=== PATIENT | female | born 1975 | race Caucasian/White ===

== ENCOUNTER 2017-07-10 07:09 | Emergency (ER) | payer OTHER, MEDICARE ==
[~2017-07-10] VITALS: Ht 152.4 cm; Wt 62.6 kg
--- NOTE | 2017-07-10 07:49 | ED PSYCHIATRIC COMPLAINT ---
History of Present Illness General Chief Complaint: General Adult Stated Complaint: PIOTR MILLER, "I'M GOING THROUGH A MED CHANGE." -SI Source: patient Exam Limitations: no limitations Vital Signs & Intake/Output Vital Signs & Intake/Output Vital Signs Date Time Temp Pulse Resp B/P B/P Pulse O2 O2 Flow FiO2 Mean Ox Delivery Rate 07/10 1130 98.4 90 20 139/85 100 Room Air 07/10 0827 100 20 127/67 97 Room Air ED Intake and Output 07/11 0000 07/10 1200 Intake Total Output Total Balance Patient 138 lb Weight Allergies Coded Allergies: No Known Allergies (07/10/17) Reconcile Medications Escitalopram Oxalate (Lexapro) 20 MG TABLET 25 MG PO DAILY DEPRESSION ( Reported) Lamotrigine (Lamictal) 25 MG TABLET 75 MG PO DAIILY DEPRESSION (Reported) Lisinopril/Hydrochlorothiazide (Lisinopril-Hctz 20-12.5 MG Tab) 20 MG-12.5 MG TABLET 1 TAB PO DAILY BP (Reported) Venlafaxine HCl (Effexor XR) 37.5 MG CAP.ER.24H 1 CAP PO DAILY ANXIETY ( Reported) Triage Note: PT STATES THAT SHE WANTS TO BE EVALUATED BY PSYCH FOR MEDICATION WITHDRAW. PT STATES SHE WENT FROM 40MG TO 25MG OF LEXAPRO IN A WEEK. PT DENIES SI AND HI PT STATES SHE IS JUST VERY ANXIOUS Triage Nurses Notes Reviewed? yes : No Patient currently breastfeeds: No HPI: Patient presents for evaluation of anxiety. Patient states that she has been feeling anxious for about the last 3 months. She is currently going through medication change. The anal IOP. She states she is being weaned off Lexapro and being switched to Effexor. She took a dose of the Effexor and had trouble sleeping. She is concerned that she is now showing withdrawal effects from the Lexapro. Patient denies suicidal ideation. Symptoms are described as more or less constant but fluctuating in intensity but overall seem to be worsening. Past History Travel History Traveled to [place] past 21 day No Medical History Any Pertinent Medical History? see below for history Cardiovascular: hypertension Psychiatric: anxiety, depression Surgical History Surgical History: non-contributory Psychosocial History What is your primary language Brazilian Tobacco Use: Current Daily Use Daily Tobacco Use Amount/Type: => 5 Cigarettes daily Family History Hx Contributory? No Review of Systems Review of Systems Constitutional: Reports: no symptoms. EENTM: Reports: no symptoms. Respiratory: Reports: no symptoms. Cardiovascular: Reports: no symptoms. GI: Reports: no symptoms. Genitourinary: Reports: no symptoms. Musculoskeletal: Reports: no symptoms. Skin: Reports: no symptoms. Neurological/Psychological: Reports: see HPI. Hematologic/Endocrine: Reports: no symptoms. Immunologic/Allergic: Reports: no symptoms. All Other Systems: Reviewed and Negative Physical Exam Physical Exam General Appearance: see below Neurological/Psychiatric: see below Comments: General: Alert, calm, cooperative Head: Normocephalic, atraumatic Eyes: Normal inspection, no nystagmus, EOMI Ears: Normal inspection Nose: Normal inspection Throat: Moist mucosa Neck: Supple, no goiter Heart: Regular rate and rhythm, no murmurs rubs or gallops Lungs: Clear to auscultation bilaterally with good air entry Abdomen: Soft nontender nondistended, normal bowel sounds Chest: Nontender Extremities: Normal range of motion grossly, mild/moderate tremors present, no cyanosis clubbing or edema of the upper extremities Neurologic: cranial nerves II through XII grossly intact, speech clear, gait normal Psychiatric: No apparent delusions or hallucinations, no pressured speech or thought blocking SAD PERSONS Done? deferred to crisis Progress Differential Diagnosis: depression, anxiety, bipolar disorder, personality disorder Plan of Care: Orders Procedure Date/time Status URINE DRUG SCREEN FOR ER ONLY 07/11 751 Complete ED CRISIS PSYCH CONSULT 07/11 751 Active Laboratory Tests 07/10/17 0810: Urine Opiates Screen < 100, Methadone Screen 50, Barbiturate Screen < 60, Ur Phencyclidine Scrn < 6.00, Amphetamines Screen < 100, U Benzodiazepines Scrn < 85, Urine Cocaine Screen < 50, Urine Cannabis Screen < 5.00 Comments: Patient seen being evaluated by the psychiatrist. Patient then left the emergency department without notifying ED staff. Departure Departure Disposition: LEFT AGAINST MEDICAL ADVICE Condition: Stable Clinical Impression Primary Impression: Anxiety Referrals: Vel BROWN,Morena Mas (PCP/Family) Departure Forms: Customer Survey General Discharge Information
[2017-07-10] MEDS ORDERED: LAMICTAL25 M1 PO (08:28)
[2017-07-10] MEDS ORDERED: LEXAPRO20 M1 PO (08:29)
[2017-07-10] MEDS ORDERED: EFFEXOR XR37.5 M1 PO (08:29)
[2017-07-10] MEDS ORDERED: LISINOPRIL-HCT1 EACH PO (08:29)
[2017-07-10 11:30] VITALS: BP 139/85
--- NOTE | 2017-07-10 13:11 | ED PSYCHIATRIST/APRN CONSULT ---
Psychiatrist/OFFICE ADMINISTRATION ED Consult Assessment and Plan: Met with Ms. Dash, who has been anxious, ambivalent and difficulty with simple decision making, about her med changes. She was recently tapered from lexapro 40mg to 25mg and started on effexor 37.5mg last week. She took one dose at 9pm and didn't sleep and stated that she has not been doing well, with panic like sx since. She stated that she has been going to [facility] with palpitations and other complaints almost each day this week. I explained to her that some med changes can cause worsening anxiety, that effexor has different chemicals (Norepi) compared to lexapro, and may cause some worse anxiety at first. She was ambivalent about taking it, saying it made her feel nauseated and worse, but then concerned that her provider would be "mad" at her if she stopped it. I explained to her repeatedly that I would not be prescribing her a new antianxiety/depressant med based on our brief ER discussion, but would recommend a short term med such as buspar, benadryl or vistaril until her anxiety is stabilized. I assured her that if she stopped the effexor for a few days and worked with her provider there would be no issues with her trying to start it again. Despite all this, remained anxious, negating most things offered to her. She is visibly anxious but is redirectable and able to calm with reassurance and education. We discussed taking a dose of buspar and re-eval in a few hours, with likely plan discharge with a few day dose of buspar to return to her primary psychiatrist. She was offered earlier today voluntary admission or further observation but understood that we have no beds currently, I don't think she meets criteria for inpatient admission at this time, but she is labile and anxious, and though she has strong supports (in treatment and supportive family) she is not using them appropriately (going to ERs all week) at this time, so will re-eval later once she takes some buspar.
--- NOTE | 2017-07-10 14:57 | ED PSYCH CRISIS CONSULTATION ---
Crisis Consult Basic Assessment Date of Consult: 07/10/17 Responsible Person/Accompanied By: Patient drove herself for evaluation Insurance Authorization: Insurance #1: Insurance name: MEDICARE A Policy number: [id number] ED Provider: Patient's ED Provider: Heather BROWN,Parminder Booker Primary Care Physician: Patient's PCP: Morena Crowder MD, I. PCP's Current Psychiatrist: Dr. Shalini Blancas MD - [facility] Chief Complaint: General Adult Patient's Quote: "My anxiety has been bad" Present Illness: Patient is a 42 year old female who drove herself to [facility] emergency department due to concern about a recent medication change and increased anxiety with recurrent panic attacks. Patient reports she has been seeking evaluations everyday for the past week in emergency rooms, primarily [facility] / [facility]. Patient states she has experienced symptoms of feeling like Im crazy, shaking, feel like dying. Also, patient asserts she has had nausea possibly due to a medication side effect. Patient is currently a patient of [facility] intensive outpatient program (I[facility] She sees Dr. Shalini Blancas M.D. for medication management and attends group therapy three times a week. Patient reports Dr. Mendoza recently added a medication (Effexor 37.5 mg) and also is titrating down her Lexapro from 40mg? to 25 mg. Patient is also prescribed Lamictal 75 mg. Patient asserts she has been on longstanding psychotropic medication management with prescribed Lexapro for ~16 years and Lamictal for ~6 years. Patient indicates that she achieved stability with this regimen for several years without issues. Patient reports that she began experiencing anxiety for the past few weeks. Patients brother about 2 years ago and a nieces committed suicide in March. Patient reports her son had a flu illness in March and she was very concerned about this due to news reports about tragic outcomes from this seasons flu. Patient reports when she starting experiencing anxiety, she reported this to her home manager at the time ([facility] in [place], [place]) who referred her to [facility] IOP program. Patient indicates she has been with [facility] for an extended period of time prior to [facility] and that she will return once she is done with IOP. Apart from the above changes recently, patient denies any significant events. Patients symptoms are consistent with panic attacks. Patient reports only having knowledge of one breathing technique specific to managing panic attacks ( breathing in and out.) This aligner typewriter provided brief psychoeducation on breathing techniques such as pursed lip breathing and 4-7-8 breathing which have good effect for hyperventilation associated with panic attacks. Patient is a chronic smoker and reports smoking up to 1 pack of cigarettes per day. She denies any other substance use. A urine toxicology screening was performed and patient is negative for all substances. Patient does have a PRN prescription for Ativan but she denies using it as it makes her feel increased depression. Patient has also had trials of Xanax and Klonipin and anxiolytics in the past which she did not continue due to negative side effects (nausea.) Today, patient reports she did not take her Effexor this morning as prescribed because she felt weird when taking it and also suspected it made her feel nauseous. Patient asserts she is very concerned about this and wanted guidance. This aligner typewriter advised, on-call psychiatrist will be consulted Dr. Lacey met with patient *documented in patient chart. Patient has been taking her Lexapro medication and Lamictal as prescribed. Patient denies suicidal ideation, intent or plan currently or in the past. A Gallia suicide severity rating scale (C.-S.S.R.S.) was completed with no identified significant risk factors apart from recent activating events ( in family). Patient also is assessed for significant recent clinical status concern of anxiety. Patient has identified protective factors of i.) reason for living, ii.) responsibility to family iii.) fear of dying. Patient asserts she feels safe to return home but also inquired if she could be considered for an inpatient psychiatric admission at [facility]. This aligner typewriter advised the process to determine criteria for this and that it would be reviewed by on-call psychiatrist. Patient did not indicate any specific reason by she was considering an inpatient admission other than to change her medications. Patient reports historical diagnoses as anxiety disorder and depressive disorder. Patient receives social security disability benefits for her depression. Patient resides with her mother, boyfriend, and 3 children ages 26, 19, and 12. Patient is not employed due to disability. Patient has stable housing. Patient asserts she has support from her family although they are unsure about how to help her with recent anxiety. Patient was ambivalent about her treatment options. She does intend to return to her IOP program and will raise the medication issue with her provider there. Patient asserts her panic attacks result in her seeking ED evaluations because she legitimately feels she is in medical crisis. When asked if there were any previous acute findings, patient reports there was a remark about an abnormal EKG which resulted in the taper of the Lexapro. Today, patient was medically cleared by attending physician Dr. Romero. Patient's Address: [address] [place] [address] [place] [address] Who Do You Live With? Mother (also also boyfriend+3 children) Family/Informants Interviewed: cannot be obtained due to (Patient left ED) Allergies - Coded Allergies: No Known Allergies (07/10/17) Current Medications - Scheduled Medications Escitalopram Oxalate (Lexapro) 20 MG TABLET 25 MG PO DAILY DEPRESSION ( Reported) Entered as Reported by Emely Mullins on 07/10/17828 Lamotrigine (Lamictal) 25 MG TABLET 75 MG PO DAIILY DEPRESSION (Reported) Entered as Reported by Emely Mullins on 07/10/17 08 Lisinopril/Hydrochlorothiazide (Lisinopril-Hctz 20-12.5 MG Tab) 20 MG-12.5 MG TABLET 1 TAB PO DAILY BP (Reported) Entered as Reported by Emely Mullins on 07/10/17828 Venlafaxine HCl (Effexor XR) 37.5 MG CAP.ER.24H 1 CAP PO DAILY ANXIETY ( Reported) Entered as Reported by Emely Mullins on 07/10/17828 Laboratory Results: Laboratory Tests 07/10/17 0810: Urine Opiates Screen < 100, Methadone Screen 50, Barbiturate Screen < 60, Ur Phencyclidine Scrn < 6.00, Amphetamines Screen < 100, U Benzodiazepines Scrn < 85, Urine Cocaine Screen < 50, Urine Cannabis Screen < 5.00 Past History Past Medical History Cardiovascular: hypertension Psychiatric: anxiety, depression Psychosocial History Strengths/Capabilities: Patient has supportive family. Patient is enrolled in intensive outpatient program and committed to treatment. Physical Limitations (Interventions): None assessed Psychiatric Treatment History Psych Treatment Psychiatric Treatment Yes Inpatient Treatment No Outpatient Treatment Yes Location of Treatment [facility] Reason for Treatment Depressive disorder and anxiety disorder Dates of Treatment 2001 to present Response to Treatment Recently, patient has had increasing anxiety despite treatment Diagnosis by History: Depressive disorder Anxiety disorder Substance Use/Abuse History Drug Use/Abuse Substances Used/Abused No Substance Abuse Treatment Substance Abuse Treatment Past Substance Abuse [place] No Inpatient Treatment No Outpatient Treatment No Current Mental Status Mental Status Orientation: Person, Place, Situation Affect: Anxious Speech: WNL Neuro-vegetative: Sleep Disturbance Appearance Appearance- Dress/Hygiene: Patient dressed in personal clothes. Observed to be slightly fidgety / anxious. No remarkable visible features. Behaviors Thought Process: WNL Thought Content: WNL Memory: WNL Insight: Fair SI/HI Risk Assessment Past Suicidal Ideation/Attempts No (Patient denies) Current Suicidal Ideation/Att No (Patient denies) Past Homicidal Ideation/Att: No Current Homicidal Ideation/Attempts No Degree of Intent: None Risk Factors: high anxiety/distress Lethality Ratin (mild) PTSD Checklist PTSD Done? patient declined (No trauma history reported) ED Management Sitter: No (Arrived as medical evaluation) Restraints: No (Patient is calm&cooperative.) DSM5/PS Stressors/Medical Prob Diagnosis' (DSM 5, Stressors, Medical): F41.9 Unspecified anxiety disorder F32.9 Unspecified depressive disorder Rule - out for : F41.0 Panic disorder Current GAF: 40 Comments: On disability / SSI Departure Disposition Psych Medical Clearance Date: 07/10/17 Medically Cleared at: 1000 Time Started: 1000 Time Ended: 1100 Psychiatrist Consulted: Dr. Lory Lacey MD Date Disposition Established: 07/10/17 Time Disposition Established: 1230 Plan for Disposition - Modality: IOP Facility: [facility] Outpatient Psychiatry Follow-up Appt Date: 07/12/17 Rationale for Disposition: Crisis evaluation reviewed with Dr. Lacey who assessed patient herself. Patient was to be given one dose of Buspar to address anxiety, however she left the emergency department before this was administered. This aligner typewriter called patient to assess for safety as she left abruptly. Patient advised that she was actually at [facility] emergency department seeking an evaluation there. This aligner typewriter informed patient that [facility] could contact [facility] for collateral if needed. Referrals Vel BROWN,Morena Mas (PCP/Family)
== END 2017-07-10 14:08 | disposition left against medical advice (07) ==
LOC: ERH 07:09
DX: F41.9 Anxiety disorder, unspecified (principal)
CPT/HCPCS: 80307; G0463

== ENCOUNTER 2017-10-12 06:45 | Inpatient (IN) | payer OTHER, MEDICARE ==
[~2017-10-12] VITALS: Ht 154.9 cm; Wt 59.9 kg
[~2017-10-12 06:45] MED LIST: EFFEXOR XR37.5 M1 PO; LAMICTAL25 M1 PO; LEXAPRO20 M1 PO; LISINOPRIL-HCT1 EACH PO; LISINOPRIL20 M1 PO
--- NOTE | 2017-10-12 07:22 | ED GENERAL ADULT ---
History of Present Illness General Chief Complaint: Abdominal Pain/Flank Pain Stated Complaint: ABD PAIN Source: patient Exam Limitations: no limitations Vital Signs & Intake/Output Vital Signs & Intake/Output Vital Signs Date Time Temp Pulse Resp B/P B/P Pulse O2 O2 Flow FiO2 Mean Ox Delivery Rate 10/12 1600 97.7 67 18 159/107 97 Room Air 10/12 1400 98.8 72 16 148/99 97 Room Air 10/12 1200 98.6 71 16 159/103 98 Room Air 10/12 1024 98.2 69 20 140/80 99 Room Air 10/12 0701 98.4 82 18 164/94 98 Room Air Allergies Coded Allergies: No Known Allergies (07/10/17) Reconcile Medications Escitalopram Oxalate (Lexapro) 20 MG TABLET 20 MG PO DAILY DEPRESSION ( Reported) Lamotrigine (Lamictal) 25 MG TABLET 75 MG PO DAIILY DEPRESSION (Reported) Lisinopril 20 MG TABLET 1 TAB PO DAILY BP (Reported) Triage Note: 42 YO FEMALE TO TRIAGE FORE ANA LUISA OF ABD APNI WITH +NAUSEA X1 WEEK. ALSO REQUESTING TO SPEAK TO CRISIS REGARDING DEPRESSION. DENIES SI/HI. STATES HER OUTPATIENT PSYCH THIKS SHE NEEDS ADMISSION FOR HER DEPRESSION BECAUSE WHENEVER SHE STARTS A NEW MEDICATION FOR HER DEPRESSION "I RUN TO THE HOSPITAL THINKING SOMETHING IS WRONG" Triage Nurses Notes Reviewed? yes Onset: Abrupt Duration: hour(s): Timing: recent history : No Patient currently breastfeeds: No HPI: 10/12/17 7:32 AM 42-year-old female presents to the emergency department with epigastric abdominal pain. The patient states she's had epigastric abdominal pain radiating up into the chest for the past several weeks. She denies fever vomiting or other complaints. She says she has a history of depression and would also like to speak with the psychiatrist. She denies suicidal ideation. She says she does smoke; she does not drink. She feels anxious but denies shortness of breath per se, her PERC score is low risk (Parminder Jiménez DO) Past History Travel History Traveled to [place] past 21 day No Medical History Any Pertinent Medical History? see below for history Cardiovascular: hypertension Psychiatric: anxiety, depression Surgical History Surgical History: non-contributory Psychosocial History Who do you live with Mother What is your primary language French Tobacco Use: Current Daily Use Daily Tobacco Use Amount/Type: => 5 Cigarettes daily Family History Hx Contributory? No (Parminder Jiménez DO) Review of Systems Review of Systems Constitutional: Denies: fever. EENTM: Denies: visual changes. Respiratory: Denies: short of breath. Cardiovascular: Denies: chest pain. GI: Reports: abdominal pain, nausea. Genitourinary: Reports: no symptoms. Musculoskeletal: Reports: no symptoms. Skin: Denies: rash. Neurological/Psychological: Reports: depressed. Hematologic/Endocrine: Reports: no symptoms. Immunologic/Allergic: Reports: no symptoms. (Parminder Jiménez DO) Physical Exam Physical Exam General Appearance: well developed/nourished, alert, awake, anxious, mild distress Head: atraumatic, normal appearance Eyes: Bilateral: normal appearance, PERRL, EOMI. Ears, Nose, Throat: normal pharynx, normal ENT inspection, hearing grossly normal Neck: normal inspection, supple Respiratory: normal breath sounds, chest non-tender, no respiratory distress Cardiovascular: regular rate/rhythm Peripheral Pulses: 4+ radial (R), 4+ radial (L) Gastrointestinal: soft, non-tender Back: normal range of motion Extremities: normal inspection, normal range of motion, no edema Neurologic/Psych: no motor/sensory deficits, awake, alert, oriented x 3 Skin: intact, normal color, warm/dry Core Measures ACS in differential dx? No CVA/TIA Diagnosis: No Sepsis Present: No Sepsis Focused Exam Completed? No (Parminder Jiménez DO) Progress Differential Diagnoses I considered the following diagnoses in my evaluation of the patient: [Peptic ulcer disease, pancreatitis, gastritis,] Plan of Care: Orders Procedure Date/time Status VDRL 10/13 06 Active TSH REFLEX 10/13 0600 Active LIPID PANEL 10/13 0600 Active GLYCOSYLATED HGB 10/13 0600 Active Regular Diet 10/12 L Active Admit to inpatient psych 10/12 1724 Active Activity/Ambulation 10/12 1710 Active Admit to inpatient psych 10/12 1704 Active Vital Signs 10/12 1704 Active Add-on Test (ER Only) 10/12 0845 Active URINE DRUG SCREEN FOR ER ONLY 10/12 0740 Complete ED CRISIS PSYCH CONSULT 10/12 0739 Active ETHANOL 10/12 0734 Complete EKG 10/12 0731 Active TROPONIN LEVEL 10/12 07 Complete LIPASE 10/12 726 Complete HUMAN BETA HCG SCREEN 10/12 726 Complete COMPREHENSIVE METABOLIC PANEL 10/12 726 Complete CBC WITHOUT DIFFERENTIAL 10/12 726 Complete Current Medications Sig/Richard Start time Last Medication Dose Stop Time Status Admin Escitalopram Oxalate 20 MG DAILY 10/13 0900 UNVr (Lexapro) Lisinopril 20 MG DAILY 10/13 09 UNVr (Prinivil) Benztropine Mesylate 1 MG Q6P PRN 10/12 1714 UNVr (Cogentin 1 MG Tablet) Benztropine Mesylate 1 MG Q6P PRN 10/12 1714 UNVr (Cogentin) Haloperidol 5 MG Q6P PRN 10/12 1714 UNVr (Haldol) Haloperidol 5 MG Q6P PRN 10/12 1714 UNVr (Haldol) Lorazepam 2 MG Q6P PRN 10/12 1714 UNVr (Ativan) Lorazepam 2 MG Q6P PRN 10/12 1714 UNVr (Ativan) Nicotine 2 MG Q2H PRN 10/12 1714 UNVr (Nicotine) Sodium Chloride 1,000 ML ONCE ONE 10/12 744 AC (Normal Saline 0.9%) 10/13 2103 Laboratory Tests 10/12/17 0840: Urine Opiates Screen < 100, Methadone Screen 44, Barbiturate Screen < 60, Ur Phencyclidine Scrn < 6.00, Amphetamines Screen < 100, U Benzodiazepines Scrn < 85, Urine Cocaine Screen < 50, Urine Cannabis Screen < 5.00 10/12/17 0740: Serum Alcohol Cancelled 10/12/17 0734: Anion Gap 9, Estimated GFR > 60, BUN/Creatinine Ratio 26.0 H, Glucose 101 H, Calcium 8.8, Total Bilirubin 0.5, AST 13 L, ALT 31, Alkaline Phosphatase 45, Troponin I < 0.01, Total Protein 5.9 L, Albumin 3.7, Globulin 2.2, Albumin/ Globulin Ratio 1.7, Lipase 85, Total Beta HCG NEGATIVE, CBC w Diff NO MAN DIFF REQ, RBC 4.05 L, MCV 68.1 L, MCH 21.5 L, MCHC 31.5 L, RDW 18.6 H, MPV 9.5, Gran % 68.3, Lymphocytes % 23.5, Monocytes % 6.5, Eosinophils % 1.1, Basophils % 0.6, Absolute Granulocytes 2.5, Absolute Lymphocytes 0.9 L, Absolute Monocytes 0.2, Absolute Eosinophils 0, Absolute Basophils 0, Serum Alcohol < 10.0 Initial ED EKG: pending (Parminder Jiménez DO) Comments: Dr. Martin addendum at 1725 hrs.: I assumed care from Dr. Jiménez while awaiting crisis evaluation. Crisis team saw the patient and deemed her in need of hospitalization. She was admitted to the psychiatric service for definitive care. No acute events during my ED care. (Alexi Martin DO) Departure Departure Disposition: STILL A PATIENT Condition: Stable Clinical Impression Primary Impression: Abdominal pain Secondary Impressions: Depression Referrals: Vel BROWN,Morena Mas (PCP/Family) Departure Forms: Customer Survey General Discharge Information Comments 10/12/17 3 PM Labs unremarkable other than chronic anemia. The patient is pending evaluation and disposition by crisis. She was signed out to Dr. Martin at 3 PM. (Parminder Jiménez DO) Critical Care Note Critical Care Note Critical Care Time: non-applicable (Parminder Jiménez DO)
[2017-10-12 07:47] LABS: ABSOLUTE BASOPHIL COUNT 0 /CUMM (0.0-0.2); ABSOLUTE EOSINOPHIL COUNT 0 /CUMM (0.0-0.7); ABSOLUTE LYMPH COUNT 0.9 /CUMM (1.2-3.4); ABSOLUTE MONOCYTE COUNT 0.2 /CUMM (0.10-0.60); EOSINOPHIL % 1.1 % (0-5); MEAN PLATELET VOLUME 9.5 FL (7.4-10.4)
[2017-10-12 07:59] LABS: ABSOLUTE GRANULOCYTE CT 2.5 /CUMM (1.4-6.5); BASOPHIL % 0.6 % (0.0-2.0); GRANULOCYTE % 68.3 % (42.2-75.2); HEMATOCRIT 27.6 % (37-47); MEAN CORPUSCULAR HGB 21.5 PG (27.0-31.0); MEAN CORPUSCULAR HGB CONC 31.5 G/DL (33.0-37.0); MEAN CORPUSCULAR VOLUME 68.1 FL (81.0-99.0); PLATELET COUNT 334 /CUMM (130-400); RBC DISTRIBUTION WIDTH 18.6 % (11.5-14.5); RED BLOOD CELL CT 4.05 /CUMM (4.20-5.40); WHITE BLOOD CELL COUNT 3.7 /CUMM (4.8-10.8)
--- NOTE | 2017-10-12 10:16 | ED PSYCH CRISIS CONSULTATION ---
See Addendum Crisis Consult Basic Assessment Date of Consult: 10/12/17 Responsible Person/Accompanied By: self/bf Ed Insurance Authorization: Insurance #1: Insurance name: MEDICARE A Phone number: Policy number: [id number] Group number: Authorization number: ED Provider: Patient's ED Provider: Parminder Jiménez DO Primary Care Physician: Patient's PCP: Morena Crowder MD, I. PCP's Current Psychiatrist: Rosangela Sotelo APRN [facility] [phone] Chief Complaint: Psychiatric Related Complaint Patient's Quote: I'm having more panic attacks Present Illness: pt is a 42 yo female presenting to [place] ED this morning with complaint of depression and increasing panic attacks. Pt reports panic attacks have intensified past week [facility] no includes SI with thoughts to step in front of a car. Pt reports she isn't sure she would not step in front of a car when having one of her attacks. Pt had 1st Psychiatric admission last month - 30 day inpatient at [facility] with discharge to continued wkly medication management at [facility] and individual counseling 3x/wk with Daja Coles L[facility] in [place], [place]. Pt also received visiting nursing who administer her medications every morning. Pt was admitted for Illness Anxiety D/O and treated with CBT. Pt symptoms reportedly began about 5 months ago and has made frequent (multiple times per week) visits to EDs ([place], [place], [place]) for anxiety symptoms. Pt had been attending [place] IOP and almost nightly going to their ED prior to admission to [facility]. Pt reports treatment for mild depression and anxiety since her early 20s and has been prescribed Lexapro for 16 yrs. During pt inpatient at [facility] Lamictal was discontinued. Rosangela Sotelo APRN at [facility] is recommending trial of remeron but pt is too anxious to try new medication on an outpatient basis. Pt states she gets so anxious she will go to ED everyday. Rosangela reports seeing pt yesterday and she reported SI and thinks pt needs to be inpatient. Pt resides with her mother, bf and children ages 26, 19 and 12. Pt doesn't work and receives disability. Pt denies etoh and substance use. Pt smokes 1 pack cigarettes per day. Pt has no legal involvement. Pt reports grief related to unexpected of brother 2 yrs ago and recent suicide of her niece's . Pt also reports her oldest son had a health scare a few months ago but now is ok. Pt denies HI/AH/VH. Pt presents as anxious, tearful, OX3. Case reviewed with Dr Lynne. Pt is currently gravely disabled despite being active with an intensive treatment plan in place. and requires inpatient psychiatric treatment. Pt is in agreement with plan and will require a bed search. Patient's Address: [address] [place] [address] [place] [address] Other Phone Number: Who Do You Live With? Family Family/Informants Interviewed: collateral provided by Ed. He reports being with pt 3 yrs and that she has always been a little anxious but over the past few months can't function at home. He reports pt is horvath, irritable and requires him to drive her around before and after he works to help alleviate her anxiety. He feels current medication and treatment supports aren't working. Allergies - Coded Allergies: No Known Allergies (07/10/17) Current Medications - Scheduled Medications Escitalopram Oxalate (Lexapro) 20 MG TABLET 20 MG PO DAILY DEPRESSION ( Reported) Entered as Reported by Emely Mullins on 07/10/17 0829 Lamotrigine (Lamictal) 25 MG TABLET 75 MG PO DAIILY DEPRESSION (Reported) Entered as Reported by Emely Mullins on 07/10/17 0828 Lisinopril 20 MG TABLET 1 TAB PO DAILY BP (Reported) Entered as Reported by Alba Gutierrez on 08/08/17 1601 Laboratory Results: Laboratory Tests 10/12/17 0840: Urine Opiates Screen < 100, Methadone Screen 44, Barbiturate Screen < 60, Ur Phencyclidine Scrn < 6.00, Amphetamines Screen < 100, U Benzodiazepines Scrn < 85, Urine Cocaine Screen < 50, Urine Cannabis Screen < 5.00 10/12/17 0740: Serum Alcohol Cancelled 10/12/17 0734: Anion Gap 9, Estimated GFR > 60, BUN/Creatinine Ratio 26.0 H, Glucose 101 H, Calcium 8.8, Total Bilirubin 0.5, AST 13 L, ALT 31, Alkaline Phosphatase 45, Troponin I < 0.01, Total Protein 5.9 L, Albumin 3.7, Globulin 2.2, Albumin/ Globulin Ratio 1.7, Lipase 85, Total Beta HCG NEGATIVE, CBC w Diff NO MAN DIFF REQ, RBC 4.05 L, MCV 68.1 L, MCH 21.5 L, MCHC 31.5 L, RDW 18.6 H, MPV 9.5, Gran % 68.3, Lymphocytes % 23.5, Monocytes % 6.5, Eosinophils % 1.1, Basophils % 0.6, Absolute Granulocytes 2.5, Absolute Lymphocytes 0.9 L, Absolute Monocytes 0.2, Absolute Eosinophils 0, Absolute Basophils 0, Serum Alcohol < 10.0 (Cayetano Grijalva LCSW) Basic Assessment Insurance Authorization: Insurance #1: Insurance name: MEDICARE A [employer] Phone number: Policy number: [id number] Group number: Authorization number: DIMITRIS BLANCAS [id number] 1975 DIMITRIS BLANCAS [id number] Authorization # Client Authorization # Type of Request [id number] INITIAL Date of Admission/ Start of Services From - To Submission Date 10/12/2017 10/12/2017 - 10/14/2017 10/12/2017 (Deirdre Gillespie LCSW) Past History Past Medical History Cardiovascular: hypertension Psychiatric: anxiety, depression Past Surgical History Surgical History: non-contributory Psychosocial History Strengths/Capabilities: Patient has supportive family. Patient is committed to treatment. Physical Limitations (Interventions): None assessed Psychiatric Treatment History Psych Treatment Psychiatric Treatment Yes Inpatient Treatment Yes Outpatient Treatment Yes Location of Treatment [facility]; [facility]; [facility] Reason for Treatment depression anxiety/panic attacks Dates of Treatment Inpatient July/August 2017 Response to Treatment pt continues to decompensate despite intensive outpatient services Diagnosis by History: Depressive disorder Anxiety disorder Substance Use/Abuse History Drug Use/Abuse Substances Used/Abused No Substance Abuse Treatment Substance Abuse Treatment Past Substance Abuse [place] No Inpatient Treatment No Outpatient Treatment No Comments: pt denies etoh and substance use. Pt smokes 1 pack cigarrettes/day. (Cayetano Grijalva LCSW) Current Mental Status Mental Status Orientation: Person, Place, Situation Affect: Anxious, Labile, Sad Speech: WNL Neuro-vegetative: Appetite Decreased, Concentration Poor, Helpless, Sleep Disturbance Appearance Appearance- Dress/Hygiene: hospital scrubs; appropriately groomed; good eye contact Behaviors Thought Process: Irrational Thought Content: WNL Memory: WNL Insight: Fair SI/HI Risk Assessment Past Suicidal Ideation/Attempts Yes Current Suicidal Ideation/Att Yes (passive/no intent) Past Homicidal Ideation/Att: No Current Homicidal Ideation/Attempts No Degree of Intent: None, Thoughts/No Intent Danger To: Self Risk Factors: high anxiety/distress, SA/MH hospitalized Lethality Ratin PTSD Checklist PTSD Done? patient declined ED Management Sitter: Yes Restraints: No (Cayetano Grijalva LCSW) DSM5/PS Stressors/Medical Prob Diagnosis' (DSM 5, Stressors, Medical): Unspecified depression F32.9 Unspecified anxiety F41.9 recent loss medication changes Current GAF: 25 Comments: despite intensive outpatient treatment pt is gravely disabled and can't function in the home safely. (Cayetano Grijalva LCSW) Departure Disposition Psych Medical Clearance Date: 10/12/17 Medically Cleared at: 0930 Time Started: 0930 Time Ended: 1015 Psychiatrist Consulted: Park Lynne MD Date Disposition Established: 10/12/17 Time Disposition Established: 1130 Plan for Disposition - Modality: Inpatient Psychiatry Facility: [facility] Rationale for Disposition: mood stabilization and medication assessment Type of IP Admission: Voluntary Referrals Vel BROWN,Morena Mas (PCP/Family) (Cayetano Grijalva LCSW)
--- NOTE | 2017-10-12 19:39 | IP CRISIS DIAG ASSESS PSYCH ---
See Addendum Diagnostic Assessment Basic Assessment Insurance Authorization: Insurance #1: Insurance name: MEDICARE A [facility] Phone number: Policy number: [id number] Group number: Authorization number: Primary Care Physician: Patient's PCP: Morena Crowder MD, I. PCP's Patient's Quote: I'm having more panic attacks Present Illness: pt is a 42 yo female presenting to [place] ED this morning with complaint of depression and increasing panic attacks. Pt reports panic attacks have intensified past week [facility] no includes SI with thoughts to step in front of a car. Pt reports she isn't sure she would not step in front of a car when having one of her attacks. Pt had 1st Psychiatric admission last month - 30 day inpatient at [facility] with discharge to continued wkly medication management at [facility] and individual counseling 3x/wk with Daja Coles LPC in [place], [place]. Pt also received visiting nursing who administer her medications every morning. Pt was admitted for Illness Anxiety D/O and treated with CBT. Pt symptoms reportedly began about 5 months ago and has made frequent (multiple times per week) visits to EDs ([place], [place], [place]) for anxiety symptoms. Pt had been attending [place] IOP and almost nightly going to their ED prior to admission to [facility]. Pt reports treatment for mild depression and anxiety since her early 20s and has been prescribed Lexapro for 16 yrs. During pt inpatient at [facility] Lamictal was discontinued. Rosangela Sotelo APRN at [facility] is recommending trial of remeron but pt is too anxious to try new medication on an outpatient basis. Pt states she gets so anxious she will go to ED everyday. Rosangela reports seeing pt yesterday and she reported SI and thinks pt needs to be inpatient. Pt resides with her mother, bf and children ages 26, 19 and 12. Pt doesn't work and receives disability. Pt denies etoh and substance use. Pt smokes 1 pack cigarettes per day. Pt has no legal involvement. Pt reports grief related to unexpected of brother 2 yrs ago and recent suicide of her niece's . Pt also reports her oldest son had a health scare a few months ago but now is ok. Pt denies HI/AH/VH. Pt presents as anxious, tearful, OX3. Case reviewed with Dr Lynne. Pt is currently gravely disabled despite being active with an intensive treatment plan in place. and requires inpatient psychiatric treatment. Pt is in agreement with plan and will require a bed search. A bed in [facility] opened up, reviewed with Dr. Zuleta pt to be admitted. Patient's Address: Patient's Address: [place] [address] Other Phone Number: Who Do You Live With? Family Feel Safe Where You Live? Yes Feel Safe in Your Relationship Yes Marital Status: single Do You Have Children? Yes Ages? 26,19,12 Primary Language? Citizen [place] Language(s) Spoken At Home: Citizen [place] Family/Informants Interviewed: collateral provided by Ed. He reports being with pt 3 yrs and that she has always been a little anxious but over the past few months can't function at home. He reports pt is horvath, irritable and requires him to drive her around before and after he works to help alleviate her anxiety. He feels current medication and treatment supports aren't working. Allergies - Coded Allergies: No Known Allergies (07/10/17) Current Medications - Scheduled Medications Escitalopram Oxalate (Lexapro) 20 MG TABLET 20 MG PO DAILY DEPRESSION ( Reported) Entered as Reported by Emely Mullins on 07/10/17 0829 Lamotrigine (Lamictal) 25 MG TABLET 75 MG PO DAIILY DEPRESSION (Reported) Entered as Reported by Emely Mullins on 07/10/17 0828 Lisinopril 20 MG TABLET 1 TAB PO DAILY BP (Reported) Entered as Reported by Alba Gutierrez on 08/08/17 1601 Consequences of Psych Med Use: unknown Lab Results: Laboratory Tests 10/12/17 0840: Urine Opiates Screen < 100, Methadone Screen 44, Barbiturate Screen < 60, Ur Phencyclidine Scrn < 6.00, Amphetamines Screen < 100, U Benzodiazepines Scrn < 85, Urine Cocaine Screen < 50, Urine Cannabis Screen < 5.00 10/12/17 0740: Serum Alcohol Cancelled 10/12/17 0734: Anion Gap 9, Estimated GFR > 60, BUN/Creatinine Ratio 26.0 H, Glucose 101 H, Calcium 8.8, Total Bilirubin 0.5, AST 13 L, ALT 31, Alkaline Phosphatase 45, Troponin I < 0.01, Total Protein 5.9 L, Albumin 3.7, Globulin 2.2, Albumin/ Globulin Ratio 1.7, Lipase 85, Total Beta HCG NEGATIVE, CBC w Diff NO MAN DIFF REQ, RBC 4.05 L, MCV 68.1 L, MCH 21.5 L, MCHC 31.5 L, RDW 18.6 H, MPV 9.5, Gran % 68.3, Lymphocytes % 23.5, Monocytes % 6.5, Eosinophils % 1.1, Basophils % 0.6, Absolute Granulocytes 2.5, Absolute Lymphocytes 0.9 L, Absolute Monocytes 0.2, Absolute Eosinophils 0, Absolute Basophils 0, Serum Alcohol < 10.0 Toxicology Screen Completed? Yes Results: negative Symptoms of Use: n/a Past History Abuse/Trauma History Trauma History/Current Trauma: Denies Legal History Current Legal Status: none Psychosocial History Strengths/Capabilities: Patient has supportive family. Patient is committed to treatment. Physical Limitations (Interventions): None assessed Psychiatric Treatment History Psych Treatment Psychiatric Treatment Yes Inpatient Treatment Yes Outpatient Treatment Yes Location of Treatment [facility]; [facility]; [facility] Reason for Treatment depression anxiety/panic attacks Dates of Treatment Inpatient July/August 2017 Response to Treatment pt continues to decompensate despite intensive outpatient services Diagnosis by History: Depressive disorder Anxiety disorder Risk Factors: high anxiety/distress, SA/MH hospitalized Substance Use/Abuse History Drug Use/Abuse minimum 12mo Hx Substances Used/Abused No Substance Abuse Treatment Substance Abuse Treatment Past Substance Abuse [place] No Inpatient Treatment No Outpatient Treatment No Sexual History Sexually Active Yes # of partners 1 Sexual Orientation Heterosexual Use of Protection No Sexual Concerns: none Education History Preferred Learning Style: experiential Current Mental Status Mental Status Orientation: Person, Place, Situation Affect: Anxious, Labile, Sad Speech: WNL Neuro-vegetative: Appetite Decreased, Concentration Poor, Helpless, Sleep Disturbance Appearance Appearance- Dress/Hygiene: hospital scrubs; appropriately groomed; good eye contact Behaviors Thought Process: Irrational Thought Content: WNL Memory: WNL Insight: Fair SI/HI Risk Assessment - Minimum 6mo History- Past Suicidal Ideation/Attempts Yes Current Suicidal Ideation/Att Yes (passive/no intent) Past Homicidal Ideation/Att: No Current Homicidal Ideation/Attempts No Degree of Intent: None, Thoughts/No Intent Danger To: Self Risk Factors: high anxiety/distress, SA/MH hospitalized Lethality Ratin Needs/Init [place] Plan/Goals: saftey inpatient milieu med management individual, group family treatment AUDIT-C Questionnaire: AUDIT-C Questionnaire: Response Value ETOH use in the past year Never 0 # drinks typical/day Doesn't Drink 0 6 or > drinks per occasion Never 0 Total 0 DSM5/PS Stressors/Medical Prob Diagnosis' (DSM 5, Stressors, Medical): Unspecified depression F32.9 Unspecified anxiety F41.9 recent loss medication changes Current GAF: 25 Comments: despite intensive outpatient treatment pt is gravely disabled and can't function in the home safely.
[2017-10-12 21:57] VITALS: BP 142/98
[2017-10-13 07:38] VITALS: BP 142/91
[2017-10-13 12:23] VITALS: BP 138/81
--- NOTE | 2017-10-13 14:41 | SOCIAL WORKER PROG NOTE PSYCH ---
Social Work Progress Note Progress Note Dr. Palafox and I met with Chelo this morning. Chelo reports increased anxiety over this past year. She doesn't know if it could be triggered from her Brother 's passing a couple of years ago or seeing her son very ill this past winter in [facility]. She reports panic symptoms that happen on occasion, but struggling to deal with anxiety throughout the day. She stated she has been taking car rides at 4am to settle down. She reports a recent 30 day admission to [facility], but states she feels her depression is worsening because of the anxiety. She is not currently in IOP, but sees her therapist Daja Coles 3x 's a week. She currently lives with her Mother, her boyfriend, and 3 children (26,19,12). She has no previous suicide attempts. Reports family hx of depression and anxiety. Her Father's Brother committed suicide. She is not suicidal or homicidal currently. She reports no AH/VH. Has some guilt over her symptoms and how she is effecting her family. Feels hopeless at times. She has been "on the go" and trying to keep busy to distract from her anxiety. She stated she is fearful of her meds at times and afraid that her meds are going to kill her. Denies any issues with bad side effects from meds, doesn't know why she has these intrusive thoughts. She expressed periods of time that she has had "OCD" and described intrusive thoughts in the past. Some which may have been brought on by post depression. Dr. Palafox told her that she would best be treated in an IOP and he is not inclined to change much with her meds during this admission. Suggested refraining from coffee and taking 4am car rides. Suggested we have a family meeting and try to work on d/c soon. Called Chelo's Mother. We ended up scheduling a family meeting for Wednesday at 11am. She didn't think Chelo's boyfriend would be able to come due to work. She wanted to come in today, but I was not able to meet that request today.
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
--- NOTE | 2017-10-13 14:56 | History & Physical ---
General Information and HPI History of Present Illness: This young female is admitted to the hospital for increasing anxiety and depression. She reports that she has a long-standing history of depression and was treated by outpatient psychiatry department in [place]. Her medications were being cut down the psychiatrist gradually and presently she is feeling much worse and came to the hospital for increased anxiety and depression. From medical standpoint she reports that she has had heavy menstrual periods and had a checkup by the hazardous materials waste technician and told she had fibroids and she was found to be somewhat anemic by her outpatient physician. She also has a long-standing history of hypertension for about 12 years and is on lisinopril with generally keeps her blood pressure control. She has had appendectomy in the past and denies any other ongoing chronic problems. He She claims her parents are alive and her father has COPD but is fairly healthy except for hypertension in mother. He had one sibling a brother who from leukemia a few years ago. She herself has never been and has 3 children from different fathers and is on disability and is not employed. She smokes one pack of cigarettes a day but denies drinking any alcohol or any other illegal drugs Allergies/Medications Allergies: Coded Allergies: No Known Allergies (07/10/17) Home Med list Escitalopram Oxalate (Lexapro) 20 MG TABLET 20 MG PO DAILY DEPRESSION ( Reported) Lamotrigine (Lamictal) 25 MG TABLET 75 MG PO DAIILY DEPRESSION (Reported) Lisinopril 20 MG TABLET 1 TAB PO DAILY BP (Reported) Past History Travel History Traveled to [place] past 21 day No Medical History Neurological: NONE EENT: NONE Cardiovascular: hypertension Respiratory: NONE Gastrointestinal: NONE Hepatic: NONE Renal: NONE Musculoskeletal: NONE Psychiatric: anxiety, depression Endocrine: NONE Blood Disorders: NONE Cancer(s): NONE ROVING HAND/Reproductive: NONE History of MRSA: No History of VRE: No History of CDIFF: No Isolation History: Standard Surgical History Surgical History: non-contributory Past Family/Social History Psychosocial History Where do you live? Home Review of Systems Review of Systems Constitutional: Reports: no symptoms. EENTM: Denies: no symptoms. Cardiovascular: Denies: no symptoms. Respiratory: Denies: no symptoms. GI: Reports: bloating, distention. Genitourinary: Denies: no symptoms. Musculoskeletal: Denies: no symptoms. Skin: Denies: no symptoms. Neurological/Psychological: Reports: see HPI, anxiety, depressed, emotional problems. Hematologic/Endocrine: Denies: no symptoms (gets heavy menstrual periods). Exam & Diagnostic Data Last 24 Hrs of Vital Signs/I&O Vital Signs Date Time Temp Pulse Resp B/P B/P Pulse O2 O2 Flow FiO2 Mean Ox Delivery Rate 10/13 1223 61 138/81 10/13 0750 97.9 75 16 142/91 10/13 0738 97.9 75 142/91 10/12 2157 97.6 66 142/98 10/13 2015 98.1 74 16 154/99 99 Room Air 10/12 1801 98.0 72 18 155/82 98 Room Air 10/12 1600 97.7 67 18 159/107 97 Room Air Intake & Output 10/13 1600 10/13 0800 10/13 0000 Intake Total Output Total Balance Patient 132 lb Weight Physical Exam General Appearance Alert, Oriented X3, Cooperative, No Acute Distress Skin No Rashes, No Breakdown, No Significant Lesion HEENT Atraumatic, PERRLA, EOMI, Mucous Membr. moist/pink Neck Supple, No JVD, No thryomegaly, +2 Carotid Pulse wo Bruit Lymphatic Cervical nl Cardiovascular Regular Rate, Normal S1, Normal S2, No Murmurs, Gallops, Rubs Lungs Clear to Auscultation, Normal Air Movement Abdomen Normal Bowel Sounds, Soft, No Hepatospenomegaly, No Masses, minimal sensitivity epigastric area on palpation Neurological Exam Findings: Normal Gait, Normal Speech, Strength at 5/5 X4 Ext, Normal Tone, Cranial Nerves 3-12 NL, Reflexes 2+ Cranial Nerves II through XII: Within normal limits and intact Extremities No Clubbing, No Cyanosis, No Edema, No Tenderness/Swelling Assessment/Plan Assessment: This young female is admitted to the hospital for increasing anxiety and depression. From medical standpoint she has long-standing hypertension which seems to be fairly well controlled on lisinopril 20 mg a day and my own reading and the exam room is 140/85 and we will continue her 20 mg per day lisinopril for now although initially her blood pressure was high on admission but presently she is stable on this dose. She also has low hemoglobin and hematocrit with microcytosis and hypochromia most likely due to iron deficiency because she gives a history of heavy menstrual periods and fibroids and had recent intravaginal ultrasound done by her hazardous materials waste technician. We can check her serum iron and TIBC and ferritin to confirm that and start her empirically on Feosol once a day if she can tolerate that since she complains of stomach upset and she seemed to have some GERD-like symptoms which we will treat empirically with Mylanta or Maalox as needed. The rest of her labs and exam is unremarkable and her electrolytes and liver functions are normal. She'll be seen as needed. As Ranked By This Provider Problem List: 1. Anxiety 2. Hypertension 3. Depression 4. Abdominal pain Miscellaneous Miscellaneous Documentation Attending Case Discussed With: Claudy Palafox MD Primary Care Physician: Morena Crowder MD, I. Patient sees these Specialists None Level of Patient Care: DOUG Warren Attending MD Review Statement Attending Statement Attending MD Statement: examined this patient, reviewed EMR data (avail), discussed with nursing Attending Assessment/Plan: This young female is admitted for increasing anxiety and depression. Has hypertension as well as iron deficiency type anemia and some gastritis-like symptoms. We will continue her lisinopril and check iron studies and start her on Feosol. In addition she will be given mylanta on a when necessary basis. There is no other acute medical problem at this time.
--- NOTE | 2017-10-13 16:02 | IP INCIDENTAL NOTE PSYCH ---
Incidental Note Notation: left for Rosangela Philip APRN at [facility] [phone] to call me tomorrow after 10 a.m.
[2017-10-13 16:09] VITALS: BP 138/90
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
[2017-10-13 19:55] VITALS: BP 149/92
[2017-10-14 07:47] VITALS: BP 133/87
[2017-10-14] MEDS ORDERED: FERROUS SULFAT325 M3 PO (10:18)
--- NOTE | 2017-10-14 10:30 | Patient Discharge Instructions ---
See Addendum Psych Discharge Inst General Discharge Information Reason for Admission: Worsening panic/anxiety. Suicidal ideation. Psy Discharge Primary Diag+ Unspecified depression Psy Discharge Secondary Diag+ Unspecified anxiety R/o panic disorder Hx Lenin's Anemia Summary Tests/Major Procedures Lab ALT 31 U/L 10/12/17 0734 AST 13 U/L L 10/12/17 0734 BUN/Creatinine Ratio 26.0 % H 10/12/17 0734 Chloride 108 mmol/L H 10/12/17 0734 Cholesterol 129 MG/DL 10/13/17 0700 Cholesterol/HDL Ratio 3 % 10/13/17 0700 Ferritin Pending 10/14/17 0700 Glucose 101 mg/dL H 10/12/17 0734 HDL Cholesterol 43 mg/dL 10/13/17 0700 Iron Pending 10/14/17 0700 LDL Cholesterol, Calc 68 mg/dL 10/13/17 0700 TIBC Pending 10/14/17 0700 TSH &T3 &Free T4 Intrp 3.370 uIU/mL 10/13/17 0700 Total Beta HCG NEGATIVE 10/12/17 0734 Total Protein 5.9 g/dL L 10/12/17 0734 Triglycerides 91 mg/dL 10/13/17 0700 Absolute Lymphocytes 0.9 /CUMM L 10/12/17 0734 Hct 27.6 % L 10/12/17 0734 Hgb 8.7 G/DL L 10/12/17 0734 MCH 21.5 PG L 10/12/17 0734 MCHC 31.5 G/DL L 10/12/17 0734 MCV 68.1 FL L 10/12/17 0734 Plt Count 334 /CUMM 10/12/17 0734 RBC 4.05 /CUMM L 10/12/17 0734 RDW 18.6 % H 10/12/17 0734 WBC 3.7 /CUMM L 10/12/17 0734 RPR Titer/FTA NONREACTIVE 10/13/17 0700 Serum Alcohol < 10.0 MG/DL 10/12/17 0734 Studies Pending at [place]: Iron TIBC Ferretin Patient Instructions Contact Information Your Psychiatrist on [facility] was Claudy Palafox MD * If you are experiencing an emergency related to this hospitalization, please call [phone] to contact the treating psychiatrist or the psychiatrist-on- call. * To Request a copy of your medical records, please contact the Medical Records Department at [phone]. * To request results of studies pending at the time of discharge, please call [phone]. * Continue your Medications until directed to stop by your Healthcare provider. General Medication Information Please continue to take your new medications and your continued home medications , unless otherwise indicated on your discharge medication list, or unless directed by your MD or CORE DRILLING SUPERVISOR to stop them. Special Instructions Diet Regular Activity Normal Other Inst/Recommendations See PCP about anemia/hx Lenin's. Stop caffeine and 4 am car rides. - Tobacco Use Treatment Offered Post DC Medications Offered: Refused Tob Medication Tx Post DC Tobacco Treatment Plan: Refused Tobacco Tx Pgm - EtOH/Drug Use D/O Treatment Offered Post DC Medications Offered: NA-No EtOH/Drug Use D/O Post DC EtOH/SubAbuse TX Plan: NA-No EtOH/Drug Use D/O Metabolic Screening ([x]) Not Applicable, patient not on a neuroleptic. OR () Patient on a neuroleptic(s) . Enter below results for Hemoglobin A1C, and lipid panel if obtained during the last 365 days. BMI: 24.900 Blood Pressure: 133/87 Laboratory Results From [facility] E[facility] (If applicable): Advance Directives Does the Patient have Medical Advance Directives No/Refused further info Does Pt have Psychiatric Advance Directives? No/Refused further info Does Patient have a Designated Surrogate Decision Maker: Yes Information About Psychiatric Advance Directives Provided? Refused Discharge Plan Post Hospital Treatment Plan: Returning to home and family. Resume visiting nurse. IOP intake today at 1:15 pm.
--- NOTE | 2017-10-14 11:00 | SOCIAL WORKER PROG NOTE PSYCH ---
Social Work Progress Note Progress Note Dr. Palafox and I met with Chelo together this morning. She reported that she slept well, but woke up tearful and anxious. She reports this is how she usually wakes up. Reports anxiety at a 5 (scale 0-10, 10 being severe) and depression a 4 on the same scale. Denies any thoughts to harm herself or anyone else. Dr. Palafox explained that her symptoms would best be managed in an [facility] level of care as there is no safety concern and they can manage medication changes there if needed. She was in agreement to go to [facility]. I told her we will d/c her today with an intake if possible so she can start right away. She was fine with that plan. She couldn't remember the name of her VNS and said her prescriber at [facility] would know. I told her we will follow up with her providers and get a d/c plan in place. She plans to find a friend to pick her up today. Called [facility] and scheduled an intake for 1:15pm. Dr. Palafox spoke with Rosangela Amato ( prescriber at [facility]). She was informed of the d/c plan. She gave V[facility] information ([facility]) her visiting nurse is Maya [phone]. Called Maya and informed her of the plan. She will resume care with Chelo tomorrow morning. Chelo was advised to follow up with her PCP Dr. Zuluaga ([place]?) in [place], due to her Anemia. She said she is aware of this condition and prefers to make the appt. herself. Chelo got her boyfriend to pick her up today at d/c.
[2017-10-14 12:32] VITALS: BP 134/73
--- NOTE | 2017-10-14 14:08 | SOCIAL WORKER PROG NOTE PSYCH ---
Social Work Progress Note Faxed Referral(s) 1 Referred To: IOP Transition of Care Documents sent: Health Summary, W10 Faxed to: IOP Fax #: [phone] Faxed by: Esme Silva Date faxed: 10/14/17 Time Faxed: [phone] Faxed Referral(s) 2 Referred To: [facility] Transition of Care Documents sent: Health Summary, W10 [facility] Fax #: [phone] Faxed by: Esme Silva Date faxed: 10/14/17 Time Faxed: [phone]
--- NOTE | 2017-10-14 17:11 | CP SOUTH PROGRESS NOTE PSYCH ---
Psych (Inpt) Progress Note Progress Note Include the following elements, when applicable: Involvement in the active treatment of the patient with behavioral observations of the patient and the patient's response to the treatment. Review of the ongoing treatment process in the context of the treatment plan. Indication of how multi-disciplinary staff members are carrying out the treatment plan. Plans for future interventions and recommendations for revision of the treatment plan. Liaison with other physicians/providers. Progress Note: Case and treatment plan discussed in team meeting. Staff reports that the patient is denying suicidal ideation. Expressed anger that her medications have not been changed. Patient seen at 10:09 AM with social media marketerEsme. Patient states she feels okay , a little anxious. Reports she wakes up every morning crying and anxious. She is disappointed there have been no medication changes here. Patient is not concerned about her safety. Speech is loud. Behavior is calm and in control. Rates anxiety probably 5/10 and sad mood maybe 4/10. Denies feeling hopeless, helpless or worthless. Does feel guilty. Denies suicidal and homicidal ideation. Denies auditory and visual hallucinations and paranoid ideation. Reports she slept well. Reports appetite and energy are normal. Tolerating medications well, without complaint. She is not sure she is ready for discharge. Does feel safe for discharge. Patient was advised to avoid caffeine. She was advised to stop taking 4 AM car rides. She was advised to work on coping skills so she can avoid daily emergency room visits. Case discussed with outpatient prescriber, Rosangela Sotelo APRN. IMPRESSION: Condition improved. Okay for discharge today to IOP intake at 1:15 PM then to return home. Because of scheduling, we were unable to hold a family meeting with patient's mother. IOP provider should consider medication changes, such as addition of Remeron.
--- NOTE | 2017-10-14 17:12 | DISCHARGE SUMMARY REPORT-PSYCH ---
Visit Information Visit Dates/Diagnosis' Admission Date: 10/12/17 Discharge Date: 10/14/17 Reason for Admission: Worsening panic/anxiety. Suicidal ideation. Psy Discharge Primary Diag: Unspecified depression Psy Discharge Secondary Diag: Unspecified anxiety R/o panic disorder Hx Lenin's Anemia Hypertension Hx D.U.B. Hospital Course Significant Lab Findings: Lab ALT 31 U/L 10/12/17 0734 AST 13 U/L L 10/12/17 0734 BUN/Creatinine Ratio 26.0 % H 10/12/17 0734 Chloride 108 mmol/L H 10/12/17 0734 Cholesterol 129 MG/DL 10/13/17 0700 Cholesterol/HDL Ratio 3 % 10/13/17 0700 Ferritin Pending 10/14/17 0700 Glucose 101 mg/dL H 10/12/17 0734 HDL Cholesterol 43 mg/dL 10/13/17 0700 Iron Pending 10/14/17 0700 LDL Cholesterol, Calc 68 mg/dL 10/13/17 0700 TIBC Pending 10/14/17 0700 TSH &T3 &Free T4 Intrp 3.370 uIU/mL 10/13/17 0700 Total Beta HCG NEGATIVE 10/12/17 0734 Total Protein 5.9 g/dL L 10/12/17 0734 Triglycerides 91 mg/dL 10/13/17 0700 Absolute Lymphocytes 0.9 /CUMM L 10/12/17 0734 Hct 27.6 % L 10/12/17 0734 Hgb 8.7 G/DL L 10/12/17 0734 MCH 21.5 PG L 10/12/17 0734 MCHC 31.5 G/DL L 10/12/17 0734 MCV 68.1 FL L 10/12/17 0734 Plt Count 334 /CUMM 10/12/17 0734 RBC 4.05 /CUMM L 10/12/17 0734 RDW 18.6 % H 10/12/17 0734 WBC 3.7 /CUMM L 10/12/17 0734 RPR Titer/FTA NONREACTIVE 10/13/17 0700 Serum Alcohol < 10.0 MG/DL 10/12/17 0734 EKG 10/12/17 showed sinus rhythm @ 68, consider left ventricular hypertrophy, no significant change since previous tracing, abnormal EKG, QT 420, QTc 447. Course Complications: None. Consultations: The patient was seen by Dr. Hernandez for admission H&P. Per his note of 10/13/17: "Assessment: This young female is admitted to the hospital for increasing anxiety and depression. From medical standpoint she has long-standing hypertension which seems to be fairly well controlled on lisinopril 20 mg a day and my own reading and the exam room is 140/85 and we will continue her 20 mg per day lisinopril for now although initially her blood pressure was high on admission but presently she is stable on this dose. She also has low hemoglobin and hematocrit with microcytosis and hypochromia most likely due to iron deficiency because she gives a history of heavy menstrual periods and fibroids and had recent intravaginal ultrasound done by her supervisor paper machine. We can check her serum iron and TIBC and ferritin to confirm that and start her empirically on Feosol once a day if she can tolerate that since she complains of stomach upset and she seemed to have some GERD-like symptoms which we will treat empirically with Mylanta or Maalox as needed. The rest of her labs and exam is unremarkable and her electrolytes and liver functions are normal. She'll be seen as needed." Allergies: Coded Allergies: No Known Allergies (07/10/17) Hospital Course/TX Response: The patient was monitored on the unit for safety, anxiety and mood disorder. She participated in multimodal treatments on the unit. Home medications were continued without change. Decision was made for rapid discharge to [facility] where medication changes can be made over time. Progress note from date of discharge, 10/14/17: "Case and treatment plan discussed in team meeting. Staff reports that the patient is denying suicidal ideation. Expressed anger that her medications have not been changed. Patient seen at 10:09 AM with case management social workerEsme. Patient states she feels okay , a little anxious. Reports she wakes up every morning crying and anxious. She is disappointed there have been no medication changes here. Patient is not concerned about her safety. Speech is loud. Behavior is calm and in control. Rates anxiety probably 5/10 and sad mood maybe 4/10. Denies feeling hopeless, helpless or worthless. Does feel guilty. Denies suicidal and homicidal ideation. Denies auditory and visual hallucinations and paranoid ideation. Reports she slept well. Reports appetite and energy are normal. Tolerating medications well, without complaint. She is not sure she is ready for discharge. Does feel safe for discharge. Patient was advised to avoid caffeine. She was advised to stop taking 4 AM car rides. She was advised to work on coping skills so she can avoid daily emergency room visits. Case discussed with outpatient prescriber, Rosangela Sotelo APRN. IMPRESSION: Condition improved. Okay for discharge today to IOP intake at 1:15 PM then to return home. Because of scheduling, we were unable to hold a family meeting with patient's mother. IOP provider should consider medication changes, such as addition of Remeron." Discharge HBIPS - Tobacco Use Treatment Offered Post DC Medications Offered: Refused Tob Medication Tx Post DC Tobacco Treatment Plan: Refused Tobacco Tx Pgm - EtOH/Drug Use D/O Treatment Offered Post DC Medications Offered: NA-No EtOH/Drug Use D/O Post DC EtOH/SubAbuse TX Plan: NA-No EtOH/Drug Use D/O Metabolic Screening - Screen if on a Neuroleptic Medication - Metabolic screening should include: - Blood Pressure, BMI, Glucose or Hgb A1c, & a - Lipid profile from within the past 365 days. Metabolic Screening ([x]) Not Applicable, patient not on a neuroleptic. OR () Patient on a neuroleptic(s) . Enter below results for Hemoglobin A1C, and lipid panel if obtained during the last 365 days. BMI: 24.900 Blood Pressure: 134/73 Laboratory Results From [facility] EHR (If applicable): Discharge Instructions General Discharge Information Multiple Neuroleptics: ([x]) Not Applicable OR Document below three failed attempts at monotherapy, or a plan to taper to monotherapy, or augmentation of Clozapine. () Discharge Diet Regular Discharge Activity Normal DC Disposition: Returning to home and family. Referrals Ordered Referrals INTENSIVE OUTPT PSYCHIATRY 10/14/17 [address] [id number] [facility] Intensive Outpatient Services Intake 10/14/17 1:15pm [address] [id number] Provider Referral 10/15/17 For Groups: [[facility]] [facility] for daily med administration Resume services 10/15/17 am [phone] Provider Referral 10/20/17 For Groups: Outpatient Psychiatry [facility] Smoking Cessation Group 10/20/17 4pm [address], [place] Prescriptions Stop taking the following medications: Lamotrigine (Lamictal) 25 MG TABLET ORAL DAIILY Continue taking these medications: Escitalopram Oxalate (Lexapro) 20 MG TABLET 20 Milligram ORAL DAILY Comments: Last Taken: 10/14/17 Time: 0800 Lisinopril (Lisinopril) 20 MG TABLET 1 Tablet ORAL DAILY Comments: Last Taken: 10/14/17 Time: 0800 Ferrous Sulfate (Ferrous Sulfate) 325 MG (65 MG IRON) TABLET 1 Tablet ORAL DAILY Comments: NOT GIVEN IN THE HOSPITAL. Other Inst/Recommendations See PCP about anemia/hx Lenin's. Stop caffeine and 4 am car rides. Studies Pending at Discharge Iron, TIBC, ferretin. Copies To: Rosangela Rivera APRN; Intensive Outpt Psychiatry
== END 2017-10-14 12:56 | DRG 881 ==
LOC: ERH 06:45 → CP SOUTH 17:26 → ERHI 17:26 → CP SOUTH 17:26 → ENTRNSPT 20:52 → EDTRNSPTSTS 21:15 → CP SOUTH 21:22 → CMPTRNSPT 21:24 → CP SOUTH 10-13 12:50
PROVIDERS: Emergency Medicine; Psychiatry & Neurology Psychiatry
DX: F32.9 Major depressive disorder, single episode, unspecified (principal); F41.9 Anxiety disorder, unspecified; D64.9 Anemia, unspecified; I10 Essential (primary) hypertension; E06.3 Autoimmune thyroiditis; F41.0 Panic disorder [episodic paroxysmal anxiety]
CPT/HCPCS: 36415; 80307; 93005; 93010; G0480

== ENCOUNTER 2017-11-12 03:36 | Emergency (ER) | payer OTHER, MEDICARE ==
[~2017-11-12 03:36] MED LIST changes: +FERROUS SULFAT325 M3 PO
--- NOTE | 2017-11-12 05:19 | ED PSYCHIATRIC COMPLAINT ---
See Addendum History of Present Illness General Chief Complaint: Eye Problems Stated Complaint: BLURRY VISION,ALSO A PSYCH EVAL,NOT SLEEPING PER P Source: patient, old records Exam Limitations: no limitations Vital Signs & Intake/Output Vital Signs & Intake/Output Vital Signs Date Time Temp Pulse Resp B/P B/P Pulse O2 O2 Flow FiO2 Mean Ox Delivery Rate 11/12 0553 69 20 165/79 99 Room Air 11/12 0530 79 163/94 11/12 0414 97.0 79 16 163/94 97 Room Air Allergies Coded Allergies: No Known Allergies (07/10/17) Reconcile Medications Escitalopram Oxalate (Lexapro) 20 MG TABLET 20 MG PO DAILY DEPRESSION ( Reported) Ferrous Sulfate 325 MG (65 MG IRON) TABLET 1 TAB PO DAILY iron supplement ( Reported) Lisinopril 20 MG TABLET 1 TAB PO DAILY BP (Reported) Triage Note: PTR REPORTING "MY FACE HURTS ON MY L SIDE AND MY L EYE IS BLURRY, MAYBE IT'S A TOOTHACHE". PT ALSO STATES SHE GOES TO IOP AND HAS "BAD ANXIETY THAT I NEED TO GET TAKEN CARE OF". ALSO REPORTING DIFFICULTY SLEEPING. DENIES SI AT THIS TIME Triage Nurses Notes Reviewed? yes Onset: Just prior to arrival Duration: hour(s):, constant, continues in ED, getting worse Timing: recent history Severity: moderate, severe Associated Symptoms: anxiety, impaired concentration, insomnia LMP (ages 10-50): unknown : No Patient currently breastfeeds: No HPI: Prior to admission patient complains of blurry patient out of the left eye becoming increasingly concerned and anxious causing a panic attack worsening insomnia. She denies fever chills nausea vomiting diarrhea abdominal pain chest pain shortness of breath headache dysuria rash bleeding. Her vision is almost normal now. She reports a significant discrepancy in vision between the right and left eye. The right eye is 20/400 the left 20/20. She also complains of left upper premolar pain radiating to her ear. Past History Travel History Traveled to [place] past 21 day No Medical History Any Pertinent Medical History? see below for history Neurological: NONE EENT: NONE Cardiovascular: hypertension Respiratory: NONE Gastrointestinal: NONE Hepatic: NONE Renal: NONE Musculoskeletal: NONE Psychiatric: anxiety, depression Endocrine: Hx Lenin's Blood Disorders: NONE Cancer(s): NONE CARTOGRAPHIC DRAFTER/Reproductive: NONE History of MRSA: No History of VRE: No History of CDIFF: No Surgical History Surgical History: non-contributory Psychosocial History Who do you live with Family What is your primary language Italian Tobacco Use: Current Daily Use Daily Tobacco Use Amount/Type: => 5 Cigarettes daily ETOH Use: denies use Family History Hx Contributory? No Review of Systems Review of Systems Constitutional: Reports: no symptoms. EENTM: Reports: see HPI, blurred vision. Respiratory: Reports: no symptoms. Cardiovascular: Reports: no symptoms. GI: Reports: no symptoms. Genitourinary: Reports: no symptoms. Musculoskeletal: Reports: no symptoms. Skin: Reports: no symptoms. Neurological/Psychological: Reports: see HPI, anxiety, confusion. Hematologic/Endocrine: Reports: no symptoms. Immunologic/Allergic: Reports: no symptoms. All Other Systems: Reviewed and Negative Physical Exam Physical Exam General Appearance: well developed/nourished, alert, awake, anxious, mild distress Head: atraumatic, normal appearance Eyes: Bilateral: normal appearance, PERRL, EOMI. Ears, Nose, Throat: normal pharynx, normal ENT inspection, hearing grossly normal, dental caries left premolar and first molar Neck: normal inspection, supple Respiratory: normal breath sounds Cardiovascular: regular rate/rhythm Gastrointestinal: soft, non-tender Extremities: normal range of motion Neurological/Psychiatric: no motor/sensory deficits, awake, agitated, alert, anxious, apparel patternmaker II-XII nml as tested, oriented x 3 Appearance/Memory/Insight: impaired insight Behavoir/Eye Contact/Speech: cooperative, normal speech Thoughts/Hallucinations: no apparent hallucination Skin: intact, normal color, warm/dry SAD PERSONS Done? patient not suicidal Progress Differential Diagnosis: drug intoxication, drug overdose, drug withdrawal, electrolyte abnormality, hypoglycemia Plan of Care: Orders Procedure Date/time Status Regular Diet 11/12 B Active URINE DRUG SCREEN FOR ER ONLY 11/12 0510 Complete ETHANOL 11/12 0510 Complete COMPREHENSIVE METABOLIC PANEL 11/12 0510 Complete CBC WITHOUT DIFFERENTIAL 11/12 05 Complete ED CRISIS PSYCH CONSULT 11/12 05 Active Current Medications Sig/Richard Start time Last Medication Dose Stop Time Status Admin Escitalopram Oxalate 20 MG DAILY 11/12 0900 UNVr 11/12 (Lexapro) 0530 Lisinopril 20 MG DAILY 11/12 0900 UNVr 11/12 (Prinivil) 0530 Amoxicillin 500 MG TID 08/17 0515 UNVr (Amoxil) Ibuprofen 600 MG 4 TIMES/DAY PRN 11/12 514 UNVr (Motrin) Laboratory Tests 11/12/17 0535: Urine Opiates Screen < 100, Methadone Screen < 40, Barbiturate Screen < 60, Ur Phencyclidine Scrn < 6.00, Amphetamines Screen < 100, U Benzodiazepines Scrn < 85, Urine Cocaine Screen < 50, Urine Cannabis Screen < 5.00 11/12/17 0516: Anion Gap 4 L, Estimated GFR > 60, BUN/Creatinine Ratio 28.0 H, Glucose 96, Calcium 8.8, Total Bilirubin 0.5, AST 12 L, ALT 25, Alkaline Phosphatase 46, Total Protein 5.9 L, Albumin 3.7, Globulin 2.2, Albumin/Globulin Ratio 1.7, CBC w Diff NO MAN DIFF REQ, RBC 4.10 L, MCV 66.8 L, MCH 20.9 L, MCHC 31.3 L, RDW 18.8 H, MPV 9.1, Gran % 61.4, Lymphocytes % 28.8, Monocytes % 7.4, Eosinophils % 1.7, Basophils % 0.7, Absolute Granulocytes 2.4, Absolute Lymphocytes 1.1 L, Absolute Monocytes 0.3, Absolute Eosinophils 0.1, Absolute Basophils 0, Serum Alcohol < 10.0 Hand-Off Endorsed To: Wen BROWN,Deandre Daniels Endorsed Time: 739 Pending: consult Departure Departure Disposition: STILL A PATIENT Condition: Stable Clinical Impression Primary Impression: Generalized anxiety disorder with panic attacks Secondary Impressions: Dental caries Referrals: Vel BROWN,Morena Mas (PCP/Family) Departure Forms: Customer Survey General Discharge Information Prescriptions: Current Visit Scripts Amoxicillin 1 TAB PO TID #30 TAB
[2017-11-12 05:24] LABS: ABSOLUTE BASOPHIL COUNT 0 /CUMM (0.0-0.2); ABSOLUTE EOSINOPHIL COUNT 0.1 /CUMM (0.0-0.7); ABSOLUTE GRANULOCYTE CT 2.4 /CUMM (1.4-6.5); ABSOLUTE LYMPH COUNT 1.1 /CUMM (1.2-3.4); ABSOLUTE MONOCYTE COUNT 0.3 /CUMM (0.10-0.60); BASOPHIL % 0.7 % (0.0-2.0); EOSINOPHIL % 1.7 % (0-5); GRANULOCYTE % 61.4 % (42.2-75.2); HEMATOCRIT 27.4 % (37-47); MEAN CORPUSCULAR HGB 20.9 PG (27.0-31.0); MEAN CORPUSCULAR HGB CONC 31.3 G/DL (33.0-37.0); MEAN CORPUSCULAR VOLUME 66.8 FL (81.0-99.0); MEAN PLATELET VOLUME 9.1 FL (7.4-10.4); PLATELET COUNT 325 /CUMM (130-400); RBC DISTRIBUTION WIDTH 18.8 % (11.5-14.5); WHITE BLOOD CELL COUNT 3.9 /CUMM (4.8-10.8)
[2017-11-12] MEDS ORDERED: AMOXICILLIN500 M3 PO (07:41)
--- NOTE | 2017-11-12 08:45 | ED PSYCHIATRIST/APRN CONSULT ---
Psychiatrist/SUPERVISOR DENTAL LABORATORY ED Consult Assessment and Plan: [id number] Met with client briefly at the request of Crisis team. Client is currently in IOP. Client is seen sleeping in bed, awakens easily when this global technical writer enters the room. Hospital scrubs. She states that she woke up last night around 1am and was unable to fall back asleep. She had symptoms of panic and also reported blurry vision, so she came to the ED. She denies blurry vision at present. She continues to have extreme fears about changing or adding medications. Fears she will if she takes a new medication or makes a medication change. Denies suicidal or homicidal ideation at present. Denies psychosis. Recommended client consider taking a medication while in the ED so that she can be monitored, and perhaps this will help with her fear. Client will consider.
[2017-11-12 10:06] VITALS: BP 136/84
== END 2017-11-12 10:07 ==
LOC: ERH 03:36
PROVIDERS: Emergency Medicine
DX: F41.1 Generalized anxiety disorder (principal); F41.0 Panic disorder [episodic paroxysmal anxiety]; K02.9 Dental caries, unspecified
CPT/HCPCS: 80307; G0480

== ENCOUNTER 2017-12-16 11:22 | Emergency (ER) | payer OTHER, MEDICARE ==
[~2017-12-16] VITALS: Ht 152.4 cm; Wt 59.9 kg
[~2017-12-16 11:22] MED LIST changes: +AMOXICILLIN500 M3 PO
[2017-12-16 13:02] LABS: ABSOLUTE BASOPHIL COUNT 0 /CUMM (0.0-0.2); ABSOLUTE EOSINOPHIL COUNT 0.1 /CUMM (0.0-0.7); ABSOLUTE GRANULOCYTE CT 3.5 /CUMM (1.4-6.5); ABSOLUTE LYMPH COUNT 1.5 /CUMM (1.2-3.4); ABSOLUTE MONOCYTE COUNT 0.3 /CUMM (0.10-0.60); BASOPHIL % 0.6 % (0.0-2.0); EOSINOPHIL % 1.7 % (0-5); GRANULOCYTE % 63.7 % (42.2-75.2); HEMATOCRIT 28.3 % (37-47); MEAN CORPUSCULAR HGB 20.6 PG (27.0-31.0); MEAN CORPUSCULAR HGB CONC 30.8 G/DL (33.0-37.0); MEAN CORPUSCULAR VOLUME 66.9 FL (81.0-99.0); MEAN PLATELET VOLUME 9.4 FL (7.4-10.4); PLATELET COUNT 295 /CUMM (130-400); RBC DISTRIBUTION WIDTH 20.4 % (11.5-14.5); RED BLOOD CELL CT 4.23 /CUMM (4.20-5.40); WHITE BLOOD CELL COUNT 5.5 /CUMM (4.8-10.8)
--- NOTE | 2017-12-16 15:49 | ED GENERAL ADULT ---
See Addendum History of Present Illness General Chief Complaint: General Adult Stated Complaint: BIBA WITH HYPERTENSION Source: patient Exam Limitations: no limitations Vital Signs & Intake/Output Vital Signs & Intake/Output Vital Signs Date Time Temp Pulse Resp B/P B/P Pulse O2 O2 Flow FiO2 Mean Ox Delivery Rate 12/16 1543 98.8 72 18 194/118 100 Room Air 12/16 1144 98.0 76 18 197/113 96 Room Air Allergies Coded Allergies: No Known Allergies (07/10/17) Reconcile Medications Escitalopram Oxalate (Lexapro) 20 MG TABLET 20 MG PO DAILY DEPRESSION ( Reported) Lisinopril 20 MG TABLET 1 TAB PO DAILY BP (Reported) Triage Note: 42 Y/O FEMALE BIBA (TO TRIAGE) FROM [facility] FOR EVAL OF HYPERTENSION. PT STATES SHE TAKES LISINOPRIL 20MG DAILY; USED TO TAKE "WATER PILL" WELL HOWEVER MEDICATION WAS STOPPED DUE TO SINUS PROBLEMS. PT DENIES SYMPTOMS OTHER THAN "SEE FLOATERS A LOT". DENIES C/P. DENIES SOB. DENIES HEADACHES. EVAL'D BY ANGELES CERVANTES IN TRIAGE Triage Nurses Notes Reviewed? yes : No Patient currently breastfeeds: No HPI: 42 year old female with PMH HTN (dx in her 30s), h/o hashimotos (not currently being treated), uterine fibroids, anxiety currently being treated in [facility] presenting with elevated BP. She states she had her BP taken this morning and was 150/92. She took her Lisinopril this morning and is compliant everyday. She states her BP was taken again around 11am and was found to be 197 systolic. Her PCP was notified and recommended she come to the ED. She reports feeling very anxious this morning as she is graduating from her IOP and does not feel ready. She has a history of severe anxiety and is currently being treated with Lexapro 20mg daily. She also attends CBT three times a week. She does not feel that her anxiety is under control. She states she has had elevated systolic pressures above 200 back in July 2017 when she was not compliant with her Lisinopril. She states she has been compliant since that time. She reports seeing 'floaters' in bilateral eyes today and states she experiences this intermittently for months. Of note: her HCTZ was discontinued two months ago 2/ 2 side effect of drying out her sinuses. She reports recent cold last week that is resolving. She denies taking any OTC medications for these sx. She denies fever, chills, headache, blurry vision, abdominal pain, chest pain, SOB. (Carin Cross MD) Past History Travel History Traveled to [place] past 21 day No Medical History Any Pertinent Medical History? 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 No (Heather BROWN,Parminder Booker) Review of Systems Review of Systems Constitutional: Reports: no symptoms. Respiratory: Reports: cough. Denies: orthopnea, short of breath, sputum production, stridor, wheezing. Cardiovascular: Reports: no symptoms. GI: Reports: no symptoms. Genitourinary: Reports: no symptoms. Musculoskeletal: Reports: no symptoms. Skin: Reports: no symptoms. Neurological/Psychological: Reports: anxiety, depressed. (Carin Cross MD) Physical Exam Physical Exam General Appearance: well developed/nourished, no apparent distress, alert, awake , anxious Head: atraumatic, normal appearance Eyes: Bilateral: normal appearance, PERRL, EOMI. Neck: normal inspection, supple Respiratory: normal breath sounds, chest non-tender, no respiratory distress Cardiovascular: regular rate/rhythm, normal peripheral pulses Peripheral Pulses: 2+ radial (R), 2+ radial (L) Gastrointestinal: normal bowel sounds, soft, non-tender Extremities: normal inspection, normal capillary refill, no edema Neurologic/Psych: no motor/sensory deficits, awake, alert, oriented x 3 (Carin Cross MD) Core Measures ACS in differential dx? No CVA/TIA Diagnosis: No Sepsis Present: No Sepsis Focused Exam Completed? No (Heather BROWN,Parminder Booker) Progress Differential Diagnoses I considered the following diagnoses in my evaluation of the patient: [emotional distress 2/2 anxiety contributing to elevated BP vs thyroid abdnormality] Plan of Care: Orders Procedure Date/time Status Add-on Test (ER Only) 12/16 1631 Active TSH REFLEX 12/16 1255 Complete TROPONIN LEVEL 12/16 1137 Complete COMPREHENSIVE METABOLIC PANEL 12/16 1137 Complete CBC WITHOUT DIFFERENTIAL 12/16 1137 Complete EKG 12/16 1137 Active Laboratory Tests 12/16/17 1255: Anion Gap 6, Estimated GFR > 60, BUN/Creatinine Ratio 22.0, Glucose 79, Calcium 8.8, Total Bilirubin 0.3, AST 12 L, ALT 27, Alkaline Phosphatase 52, Troponin I < 0.01, Total Protein 6.3, Albumin 3.9, Globulin 2.4, Albumin/Globulin Ratio 1.6 , TSH &T3 &Free T4 Intrp 3.480, CBC w Diff NO MAN DIFF REQ, RBC 4.23, MCV 66.9 L, MCH 20.6 L, MCHC 30.8 L, RDW 20.4 H, MPV 9.4, Gran % 63.7, Lymphocytes % 28.1, Monocytes % 5.9, Eosinophils % 1.7, Basophils % 0.6, Absolute Granulocytes 3.5, Absolute Lymphocytes 1.5, Absolute Monocytes 0.3, Absolute Eosinophils 0.1, Absolute Basophils 0 Initial ED EKG: normal axis, normal intervals, normal p-waves, normal QRS complex, normal sinus rhythm Comments: 16:40 42 year old female sent in from [facility] for evaluation of elevated BP. Patient with known history of HTN on Lisinopril and compliant with medication. Patient is acutely anxious today as she is graduating [facility] and does not feel ready. ED work up shows no end organ damage and patient is asymptomatic. 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 Will check TSH to rule out abnormality to explain HTN, anxiety sx. Patient will need to follow up with her PCP within one week for further management of BP. (Carin Cross MD) Departure Departure Condition: Stable Referrals: Vel BROWN,Morena Mas (PCP/Family) Departure Forms: Customer Survey General Discharge Information (Carin Cross MD) Departure Disposition: HOME OR SELF CARE Clinical Impression Primary Impression: Hypertension Qualifiers: Hypertension type: unspecified Qualified Code: I10 - Essential ( primary) hypertension Additional Instructions: Continue your current blood pressure medication. Follow-up with your primary care physician tomorrow for reevaluation of your blood pressure and consideration of modification of your blood pressure regimen. Avoid caffeine and decongestants and salt if possible. Return if any concerns or sudden worsening. Thank you for choosing the [facility] for your care. It was a pleasure to serve you today. Parminder Romero M.D. [facility] Resident Co-Sign Statement Statement: ED Attending supervision documentation- [X] I saw and evaluated the patient. I have also reviewed all the pertinent lab results and diagnostic results. I agree with the findings and the plan of care as documented in the Resident's documentation. [] I have reviewed the ED Record and agree with the Resident's documentation. [] Additions or exceptions (if any) to the Resident's note and plan are summarized below: [] (Heather BROWN,Parminder Booker) Critical Care Note Critical Care Note Critical Care Time: non-applicable (Heather BROWN,Parminder Booker)
[2017-12-16 18:42] VITALS: BP 192/120
== END 2017-12-16 18:43 ==
LOC: ERH 11:22
PROVIDERS: Physician Assistant Medical
DX: I10 Essential (primary) hypertension (principal); F17.210 Nicotine dependence, cigarettes, uncomplicated; F41.9 Anxiety disorder, unspecified; F32.9 Major depressive disorder, single episode, unspecified
CPT/HCPCS: 93005; 93010